=== PATIENT | female | born 1975 | race Caucasian/White ===

== ENCOUNTER 2017-05-31 09:00 | Emergency (ER) | payer OTHER ==
[~2017-05-31] VITALS: Ht 165.1 cm; Wt 122.5 kg
--- NOTE | 2017-05-31 09:30 | Urgent Treatment Center Report ---
History of Present Issue Date/Time Seen by Provider 05/31/17 0930 Visit Reason Pt arrived:Walked Presenting Problem:LOWER BACK PAIN ON BOTH SIDES SINCE AROUND 3AM, NAUSEATED AND ALSO FEELS LIKE HER ARMS ARE SWOLLEN. Location if Accident: Onset of symptoms date/time:/ or onset unknown for:MEDICAL HX UNKNOWN Have you (or family members/close friends) recently traveled outside the [place]? N If Yes, where/when: Have you had exposure to infectious disease within the past month? TB? Other? Specify: Patient State that she has been having lower back pain since about 3 am this morning State that pain feels musclular and hurts worse with movement States that she does not remember doing anything that may have caused injury to her back State that she also noticed that her hands was a little swollen this morning ALLERGIES Coded Allergies: Penicillins (09/14/15) Home Medications Reported Medications Bupropion Hcl (Bupropion XL) 150 MG PO DAILY #30 HYDROCHLOROTHIAZIDE (Hydrochlorothiazide) 25 MG PO DAILY Fluoxetine Hcl (Prozac 20MG Capsule(Generic)) 40 MG PO DAILY History Medical History General CAD? No Angina: No [place]: No Hypertension? Yes Hyperlipidemia? No CHF? No DVT? No PE? No COPD? No Asthma? No Anemia? No GERD? No Gastric ulcers? No GI Bleed? No Hernia? No Thyroid Problems? No Hypothyroidism? No CVA? No Seizures? No Diabetes? No Renal Insuffiency? No UTI? No Stones? No BPH? No GB Disease: No Nephritic Syndrome? No Asplenia? No Hepatitis? No Sickle Cell Disease? No Arthritis? No Migraines? Yes Cataracts? No Glaucoma? No MRSA? No HIV? No TB? No Anxiety? No Depression? Yes Cancer? No More? No Immunization HX DT/Tetanus Unknown Surgical Hx Previous Surgery?Y FALLOPIAN TUBE REMOVED ABLATION Appendectomy Social History Smoking Hx Smoker: Current Every Day Smoker Tobacco: Yes Type Cigarettes Packs/day N/A Alcohol Alcohol: No Review of Systems All Other Systems Reviewed and Negative Musculoskeletal muscle pain Comment Lower back pain describes as feeling of muscle tightness and spasm like started last night around 3am denies flank pain, denies radiation, denies pain with urination, denies groin pain Physical Exam Vital Signs Vital Signs Date Time Temp Pulse Resp B/P Pulse O2 O2 Flow FiO2 Ox Delivery Rate 05/31 952 18 09/19 0951 97.9 66 18 144/98 96 05/31 0908 97.9 66 18 156/120 96 General Appearance normal appearance, WD/WN, no apparent distress Respiratory Status Yes: trachea midline, chest symmetrical, non tender chest. No: respiratory distress. Cardiovascular normal exam, regular rate/rhythm Back normal inspection, no CVA tenderness, gait normal, muscle spasm, Tenderness and muscle tightness felt lower back, no vertebral tenderness, no CVA tenderness with percussion, denies flank pain, denies radiation of pain, states muscles in lower back feel tight Extremities swelling, slight swelling noted in hands, patient admitted she is suppose to be on low sodium diet and she has been eating large amounts of chips and high sodium foods over the last few days and often has swelling in the extremities when she consumes foods with high sodium content 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 Dr Carpenter advised that patient is suppose to be on low sodium diet and HCTZ to help control blood pressure. Advised if medication worked and was discharged to have patient continue on low sodium diet and HCTZ and have patient follow up in her clinic later this week for further evaluation. Medical Decision Making LABS/Meds/Orders Pt receiving controlled substance in ED? No Results/Orders Laboratory Tests 05/31/17913: Urine Color OTHER, Urine Appearance Cloudy, Urine pH 8.5, Ur Specific [place] 1.015, Urine Protein NEGATIVE, Urine Ketones 1+ H, Urine Blood 3+ H, Urine Nitrate NEGATIVE, Urine Bilirubin NEGATIVE, Urine Urobilinogen 0.2, Ur Leukocyte Esterase NEGATIVE, Urine Glucose NEGATIVE Current Medication Orders Sig/Aldair Start time Last Medication Dose Route Stop Time Status Admin Ketorolac 60 MG ONCE ONE 05/31 945 DC 05/31 Tromethamine IM 05/31 Orphenadrine Citrate 60 MG ONCE ONE 05/31 945 DC 05/31 IM 05/31 Ketorolac 0 .STK-MED ONE 05/31 944 DC Tromethamine .ROUTE Orphenadrine Citrate 0 .STK-MED ONE 05/31 944 DC .ROUTE Orders Procedure Date/time Status CULTURE, URINE 05/31 947 Active [facility] URINE DIPSTICK 05/31 914 Complete Progress [facility] Progress Notes Comment Medication did not help with pain and now patient starting to pace and state that she is unable to get comfortable patient being transfered to ER Departure Departure Time of Disposition 1016 Disposition Still a Patient Clinical Impression Primary Impression: Low back pain Qualifiers: Chronicity: unspecified Back pain laterality: midline Sciatica presence: without sciatica Qualified Code: M54.5 - Low back pain Condition STABLE Referrals ELIDIA BAILEY (Family) at 1016
--- NOTE | 2017-05-31 09:30 | Urgent Treatment Center Report ---
History of Present Issue Date/Time Seen by Provider 05/31/17 0930 Visit Reason Pt arrived:Walked Presenting Problem:LOWER BACK PAIN ON BOTH SIDES SINCE AROUND 3AM, NAUSEATED AND ALSO FEELS LIKE HER ARMS ARE SWOLLEN. Location if Accident: Onset of symptoms date/time:/ or onset unknown for:MEDICAL HX UNKNOWN Have you (or family members/close friends) recently traveled outside the [place]? N If Yes, where/when: Have you had exposure to infectious disease within the past month? TB? Other? Specify: Patient State that she has been having lower back pain since about 3 am this morning State that pain feels musclular and hurts worse with movement States that she does not remember doing anything that may have caused injury to her back State that she also noticed that her hands was a little swollen this morning ALLERGIES Coded Allergies: Penicillins (09/14/15) Home Medications Reported Medications Bupropion Hcl (Bupropion XL) 150 MG PO DAILY #30 HYDROCHLOROTHIAZIDE (Hydrochlorothiazide) 25 MG PO DAILY Fluoxetine Hcl (Prozac 20MG Capsule(Generic)) 40 MG PO DAILY History Medical History General CAD? No Angina: No [place]: No Hypertension? Yes Hyperlipidemia? No CHF? No DVT? No PE? No COPD? No Asthma? No Anemia? No GERD? No Gastric ulcers? No GI Bleed? No Hernia? No Thyroid Problems? No Hypothyroidism? No CVA? No Seizures? No Diabetes? No Renal Insuffiency? No UTI? No Stones? No BPH? No GB Disease: No Nephritic Syndrome? No Asplenia? No Hepatitis? No Sickle Cell Disease? No Arthritis? No Migraines? Yes Cataracts? No Glaucoma? No MRSA? No HIV? No TB? No Anxiety? No Depression? Yes Cancer? No More? No Immunization HX DT/Tetanus Unknown Surgical Hx Previous Surgery?Y FALLOPIAN TUBE REMOVED ABLATION Appendectomy Social History Smoking Hx Smoker: Current Every Day Smoker Tobacco: Yes Type Cigarettes Packs/day N/A Alcohol Alcohol: No Review of Systems All Other Systems Reviewed and Negative Musculoskeletal muscle pain Comment Lower back pain describes as feeling of muscle tightness and spasm like started last night around 3am denies flank pain, denies radiation, denies pain with urination, denies groin pain Physical Exam Vital Signs Vital Signs Date Time Temp Pulse Resp B/P Pulse O2 O2 Flow FiO2 Ox Delivery Rate 05/31 952 18 09/19 0951 97.9 66 18 144/98 96 05/31 0908 97.9 66 18 156/120 96 General Appearance normal appearance, WD/WN, no apparent distress Respiratory Status Yes: trachea midline, chest symmetrical, non tender chest. No: respiratory distress. Cardiovascular normal exam, regular rate/rhythm Back normal inspection, no CVA tenderness, gait normal, muscle spasm, Tenderness and muscle tightness felt lower back, no vertebral tenderness, no CVA tenderness with percussion, denies flank pain, denies radiation of pain, states muscles in lower back feel tight Extremities swelling, slight swelling noted in hands, patient admitted she is suppose to be on low sodium diet and she has been eating large amounts of chips and high sodium foods over the last few days and often has swelling in the extremities when she consumes foods with high sodium content 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 and discussed patient and patient complaint and she agreed to give patient Tordol and Noflex to see if patient had any relief from pain. Dr Carpenter advised that patient is suppose to be on low sodium diet and HCTZ to help control blood pressure. Advised if medication worked and was discharged to have patient continue on low sodium diet and HCTZ and have patient follow up in her clinic later this week for further evaluation. Medical Decision Making LABS/Meds/Orders Pt receiving controlled substance in ED? No Results/Orders Laboratory Tests 05/31/17913: Urine Color OTHER, Urine Appearance Cloudy, Urine pH 8.5, Ur Specific [place] 1.015, Urine Protein NEGATIVE, Urine Ketones 1+ H, Urine Blood 3+ H, Urine Nitrate NEGATIVE, Urine Bilirubin NEGATIVE, Urine Urobilinogen 0.2, Ur Leukocyte Esterase NEGATIVE, Urine Glucose NEGATIVE Current Medication Orders Sig/Aldair Start time Last Medication Dose Route Stop Time Status Admin Ketorolac 60 MG ONCE ONE 05/31 945 DC 05/31 Tromethamine IM 05/31 Orphenadrine Citrate 60 MG ONCE ONE 05/31 945 DC 05/31 IM 05/31 Ketorolac 0 .STK-MED ONE 05/31 944 DC Tromethamine .ROUTE Orphenadrine Citrate 0 .STK-MED ONE 05/31 944 DC .ROUTE Orders Procedure Date/time Status CULTURE, URINE 05/31 947 Active [facility] URINE DIPSTICK 05/31 914 Complete Progress [facility] Progress Notes Comment Medication did not help with pain and now patient starting to pace and state that she is unable to get comfortable patient being transfered to ER Departure Departure Time of Disposition 1016 Disposition Still a Patient Clinical Impression Primary Impression: Low back pain Qualifiers: Chronicity: unspecified Back pain laterality: midline Sciatica presence: without sciatica Qualified Code: M54.5 - Low back pain Condition STABLE Referrals ELIDIA BAILEY (Family) at 1016
[2017-05-31 09:38] LABS: URINE BILIRUBIN - DIPSTICK NEGATIVE (NEG); URINE BLOOD 3+ (NEG)
--- NOTE | 2017-05-31 10:25 | Emergency Room Report ---
History of Present Illness Time Seen by MD Ferrer Presenting Problem in Triage Pt arrived:Walked Presenting Problem:LOWER BACK PAIN ON BOTH SIDES SINCE AROUND 3AM, NAUSEATED AND ALSO FEELS LIKE HER ARMS ARE SWOLLEN. 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 N Clinical Suspician of Infection? N Mental Status: 1 - Regular (Normal Baseline) Sepsis Risk:Low Sepsis Risk Have you (or family members/close friends) recently traveled outside the [place]? N If Yes, where/when: Have you had exposure to infectious disease within the past month? TB? Other? Specify: Source patient, RN notes reviewed Exam Limitations no limitations Comment comes to the ED with history of bilat. low back pain sin about 3AM and also complains of nausea and feels like her arms are swollen. Pain is closer to spine. No vomiting or diarrhea and no fever. Feels like she has been gaining weight. Had an endometrial ablation done 2 years ago and has not had a period since. History of HTN and Depression and also has left ovary removed. Cardiac Chest Pain Chest pain indicative of cardiac No ALLERGIES Coded Allergies: Penicillins (05/31/17) Home Medications Reported Medications Bupropion Hcl (Bupropion XL) 150 MG PO DAILY #30 HYDROCHLOROTHIAZIDE (Hydrochlorothiazide) 25 MG PO DAILY Fluoxetine Hcl (Prozac 20MG Capsule(Generic)) 40 MG PO DAILY History Medical History General CAD? No Angina: No [place]: No Hypertension? Yes Hyperlipidemia? No CHF? No DVT? No PE? No COPD? No Asthma? No Anemia? No GERD? No Gastric ulcers? No GI Bleed? No Hernia? No Thyroid Problems? No Hypothyroidism? No CVA? No Seizures? No Diabetes? No Renal Insuffiency? No End Stage Renal Disease? No UTI? No Stones? No BPH? No GB Disease: No Nephritic Syndrome? No Asplenia? No Hepatitis? No Sickle Cell Disease? No Arthritis? No Migraines? Yes Cataracts? No Glaucoma? No MRSA? No HIV? No TB? No Anxiety? No Depression? Yes Cancer? No More? 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 Musculoskeletal see HPI Psychiatric/Neurological see HPI Physical Exam Vital Signs Vital Signs Date Time Temp Pulse Resp B/P Pulse O2 O2 Flow FiO2 Ox Delivery Rate 05/31 1053 97.9 66 18 140/91 98 05/31 1047 66 18 140/91 98 05/31 1018 66 18 144/98 98 05/31 0952 18 05/31 0951 97.9 66 18 144/98 96 05/31 0908 97.9 66 18 156/120 96 General Appearance normal appearance, no apparent distress, obese Respiratory Status No: respiratory distress. 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 Yes Da was queried for this patient? Yes Reference #: [id number] Risks/benefits of using a controlled substance for treatment were not discussed w/pt Comment Zero prescriptions in past year Results/Orders Laboratory Tests 05/31/17 1030: Sodium 141, Potassium 3.7, Chloride 105, Carbon Dioxide 29, BUN 13, Creatinine 0.7, Estimated Creat Clear 207 H, Estimated GFR (MDRD) 93, Glucose 90, Calcium 8.9, Total Bilirubin 0.2, AST 14 L, ALT 38, Alkaline Phosphatase 83, Total Protein 6.8, Albumin 3.3 L, Globulin 3.5 H, Albumin/Globulin Ratio 0.9 L, Lipase 206, WBC 9.4, RBC 4.63, Hgb 13.7, Hct 40.5, MCV 87.6, RDW 12.6, Plt Count 272, MPV 8.4, Gran % 59.1, Gran # 5.5, Lymphocytes % 32.0, Monocytes % 6.1, Eosinophils % 2.2, Basophils % 0.6, Lymphocytes # 3.0, Monocytes # 0.6, Eosinophils # 0.2, Basophils # 0.1, PUBS MCHC 33.9, MCH 29.7 05/31/17 0914: Urine Color OTHER, Urine Appearance Cloudy, Urine pH 8.5, Ur Specific [place] 1.015, Urine Protein NEGATIVE, Urine Ketones 1+ H, Urine Blood 3+ H, Urine Nitrate NEGATIVE, Urine Bilirubin NEGATIVE, Urine Urobilinogen 0.2, Ur Leukocyte Esterase NEGATIVE, Urine Glucose NEGATIVE Current Medication Orders Sig/Aldair Start time Last Medication Dose Route Stop Time Status Admin Ketorolac 60 MG ONCE ONE 05/31 0945 DC 05/31 Tromethamine IM 05/31 946 09 Orphenadrine Citrate 60 MG ONCE ONE 05/31 0945 DC 05/31 IM 05/31 946 0952 Ketorolac 0 .STK-MED ONE 05/31 944 DC Tromethamine .ROUTE Orphenadrine Citrate 0 .STK-MED ONE 05/31 944 DC .ROUTE Orders Procedure Date/time Status DIET-NOTHING BY MOUTH 05/[address] ABD/PELVIS REQ 05/31 1023 Complete LIPASE 05/31 1023 Complete CBC WITH AUTO DIFF 05/31 1023 Complete CHEM 12 PROFILE 05/31 1023 Complete CULTURE, URINE 05/31 0947 Active [facility] URINE DIPSTICK 05/31 914 Complete XRAY/CT/US XRAY/CT/US CT abdomen, pelvis, L-spine CT interpretation by discussed w/radiologist Time results known: 1144 CT Results normal/NAD Comment some mild DDD Departure Departure Time of Disposition 1144 Disposition DC Home or Self Care(routine) Clinical Impression Primary Impression: Low back pain Qualifiers: Chronicity: unspecified Back pain laterality: midline Sciatica presence: without sciatica Qualified Code: M54.5 - Low back pain Condition STABLE Referrals STEPHANIE BAILEY (Family) Patient Instructions DI for Low Back Pain, Low Back Pain Additional Instructions Use medicines as directed and sleep on flat, hard surface. alternate ice and head and followup with PCP to get Physical Therapy if meds to not help Discharge Counseling Counseled pt/family regarding diagnosis, test results, medications/RX, home care, follow up needs Prescriptions Current Visit Scripts Methocarbamol (Robaxin) 500 MG PO BID #60 TAB ACETAMINOPHEN WITH CODEINE (Tylenol With Codeine #3 Tablet) 1 TAB PO Q4HP PRN pain #20 TAB DICLOFENAC SODIUM (Diclofenac 50MG) 50 MG PO BID #60 TAB ED Critical Care Critical Care No If Critical Care minutes are documented, the time involved in the performance of seperately reportable procedures was not counted toward critical care time documented. I directly delivered medical care to this critically ill and/or injured patient. Timely evaluation and treatment was necessary to address the significant organ system(s) dysfunction present in this patient. at 3593
--- NOTE | 2017-05-31 10:25 | Emergency Room Report ---
History of Present Illness Time Seen by MD Ferrer Presenting Problem in Triage Pt arrived:Walked Presenting Problem:LOWER BACK PAIN ON BOTH SIDES SINCE AROUND 3AM, NAUSEATED AND ALSO FEELS LIKE HER ARMS ARE SWOLLEN. 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 N Clinical Suspician of Infection? N Mental Status: 1 - Regular (Normal Baseline) Sepsis Risk:Low Sepsis Risk Have you (or family members/close friends) recently traveled outside the [place]? N If Yes, where/when: Have you had exposure to infectious disease within the past month? TB? Other? Specify: Source patient, RN notes reviewed Exam Limitations no limitations Comment comes to the ED with history of bilat. low back pain sin about 3AM and also complains of nausea and feels like her arms are swollen. Pain is closer to spine. No vomiting or diarrhea and no fever. Feels like she has been gaining weight. Had an endometrial ablation done 2 years ago and has not had a period since. History of HTN and Depression and also has left ovary removed. Cardiac Chest Pain Chest pain indicative of cardiac No ALLERGIES Coded Allergies: Penicillins (05/31/17) Home Medications Reported Medications Bupropion Hcl (Bupropion XL) 150 MG PO DAILY #30 HYDROCHLOROTHIAZIDE (Hydrochlorothiazide) 25 MG PO DAILY Fluoxetine Hcl (Prozac 20MG Capsule(Generic)) 40 MG PO DAILY History Medical History General CAD? No Angina: No [place]: No Hypertension? Yes Hyperlipidemia? No CHF? No DVT? No PE? No COPD? No Asthma? No Anemia? No GERD? No Gastric ulcers? No GI Bleed? No Hernia? No Thyroid Problems? No Hypothyroidism? No CVA? No Seizures? No Diabetes? No Renal Insuffiency? No End Stage Renal Disease? No UTI? No Stones? No BPH? No GB Disease: No Nephritic Syndrome? No Asplenia? No Hepatitis? No Sickle Cell Disease? No Arthritis? No Migraines? Yes Cataracts? No Glaucoma? No MRSA? No HIV? No TB? No Anxiety? No Depression? Yes Cancer? No More? 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 Musculoskeletal see HPI Psychiatric/Neurological see HPI Physical Exam Vital Signs Vital Signs Date Time Temp Pulse Resp B/P Pulse O2 O2 Flow FiO2 Ox Delivery Rate 05/31 1053 97.9 66 18 140/91 98 05/31 1047 66 18 140/91 98 05/31 1018 66 18 144/98 98 05/31 0952 18 05/31 0951 97.9 66 18 144/98 96 05/31 0908 97.9 66 18 156/120 96 General Appearance normal appearance, no apparent distress, obese Respiratory Status No: respiratory distress. 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 Yes Da was queried for this patient? Yes Reference #: [id number] Risks/benefits of using a controlled substance for treatment were not discussed w/pt Comment Zero prescriptions in past year Results/Orders Laboratory Tests 05/31/17 1030: Sodium 141, Potassium 3.7, Chloride 105, Carbon Dioxide 29, BUN 13, Creatinine 0.7, Estimated Creat Clear 207 H, Estimated GFR (MDRD) 93, Glucose 90, Calcium 8.9, Total Bilirubin 0.2, AST 14 L, ALT 38, Alkaline Phosphatase 83, Total Protein 6.8, Albumin 3.3 L, Globulin 3.5 H, Albumin/Globulin Ratio 0.9 L, Lipase 206, WBC 9.4, RBC 4.63, Hgb 13.7, Hct 40.5, MCV 87.6, RDW 12.6, Plt Count 272, MPV 8.4, Gran % 59.1, Gran # 5.5, Lymphocytes % 32.0, Monocytes % 6.1, Eosinophils % 2.2, Basophils % 0.6, Lymphocytes # 3.0, Monocytes # 0.6, Eosinophils # 0.2, Basophils # 0.1, PUBS MCHC 33.9, MCH 29.7 05/31/17 0914: Urine Color OTHER, Urine Appearance Cloudy, Urine pH 8.5, Ur Specific [place] 1.015, Urine Protein NEGATIVE, Urine Ketones 1+ H, Urine Blood 3+ H, Urine Nitrate NEGATIVE, Urine Bilirubin NEGATIVE, Urine Urobilinogen 0.2, Ur Leukocyte Esterase NEGATIVE, Urine Glucose NEGATIVE Current Medication Orders Sig/Aldair Start time Last Medication Dose Route Stop Time Status Admin Ketorolac 60 MG ONCE ONE 05/31 0945 DC 05/31 Tromethamine IM 05/31 946 09 Orphenadrine Citrate 60 MG ONCE ONE 05/31 0945 DC 05/31 IM 05/31 946 0952 Ketorolac 0 .STK-MED ONE 05/31 944 DC Tromethamine .ROUTE Orphenadrine Citrate 0 .STK-MED ONE 05/31 944 DC .ROUTE Orders Procedure Date/time Status DIET-NOTHING BY MOUTH 05/[address] ABD/PELVIS REQ 05/31 1023 Complete LIPASE 05/31 1023 Complete CBC WITH AUTO DIFF 05/31 1023 Complete CHEM 12 PROFILE 05/31 1023 Complete CULTURE, URINE 05/31 0947 Active [facility] URINE DIPSTICK 05/31 914 Complete XRAY/CT/US XRAY/CT/US CT abdomen, pelvis, L-spine CT interpretation by discussed w/radiologist Time results known: 1144 CT Results normal/NAD Comment some mild DDD Departure Departure Time of Disposition 1144 Disposition DC Home or Self Care(routine) Clinical Impression Primary Impression: Low back pain Qualifiers: Chronicity: unspecified Back pain laterality: midline Sciatica presence: without sciatica Qualified Code: M54.5 - Low back pain Condition STABLE Referrals STEPHANIE BAILEY (Family) Patient Instructions DI for Low Back Pain, Low Back Pain Additional Instructions Use medicines as directed and sleep on flat, hard surface. alternate ice and head and followup with PCP to get Physical Therapy if meds to not help Discharge Counseling Counseled pt/family regarding diagnosis, test results, medications/RX, home care, follow up needs Prescriptions Current Visit Scripts Methocarbamol (Robaxin) 500 MG PO BID #60 TAB ACETAMINOPHEN WITH CODEINE (Tylenol With Codeine #3 Tablet) 1 TAB PO Q4HP PRN pain #20 TAB DICLOFENAC SODIUM (Diclofenac 50MG) 50 MG PO BID #60 TAB ED Critical Care Critical Care No If Critical Care minutes are documented, the time involved in the performance of seperately reportable procedures was not counted toward critical care time documented. I directly delivered medical care to this critically ill and/or injured patient. Timely evaluation and treatment was necessary to address the significant organ system(s) dysfunction present in this patient. at 6378
[2017-05-31 10:44] LABS: HEMOGLOBIN 13.7 g/dL (12.2-16.2)
[2017-05-31 10:53] VITALS: BP 140/91
--- NOTE | 2017-05-31 11:18 | RADIOLOGY REPORT PS360 ---
CT ABD PELVIS W/O CONTRAST CLINICAL INDICATION: Abdominal pain with bilateral flank pain ABDOMINAL PAIN ORDERING PHYSICIAN: Donaldo Willson MD PATIENT AGE: 42 years COMPARISON: 09/15/2015 TECHNIQUE: Axial images obtained with sagittal and coronal reformats. PROCEDURE: Oral Contrast: None IV Contrast: None . FINDINGS: Lung bases are clear. The liver, spleen, adrenal glands, pancreas, kidneys, ureters, and urinary bladder have an unremarkable appearance. No renal calculi or ureteral calculi. No hydronephrosis. Prior cholecystectomy. No evidence of appendicitis or diverticulitis. No pelvic mass or abnormal fluid collection. No intestinal obstruction or free air. No acute bony anomalies. The lumbar spine has an unremarkable appearance. No significant degenerative change. IMPRESSION: No acute intra-abdominal pelvic pathology apparent
== END 2017-05-31 12:12 | disposition home or self-care (01) ==
LOC: UTC 09:00 → ER 09:05
PROVIDERS: General Practice; Nurse Practitioner
DX: M54.5 Low back pain (principal); I10 Essential (primary) hypertension; F32.9 Major depressive disorder, single episode, unspecified; Z79.899 Other long term (current) drug therapy